=== PATIENT | male | born 1980 | race Caucasian/White ===

== ENCOUNTER 2019-01-01 15:45 | Inpatient (IN) | payer MEDICAID ==
[~2019-01-01] VITALS: Ht 177.8 cm; Wt 77.3 kg
[2019-01-01 16:22] LABS: BASOPHILS # (AUTO) 0.04 x10^3/uL (0-0.1); BASOPHILS % (AUTO) 0 % (0-1); EOSINOPHILS # (AUTO) 0.02 x10^3/uL (0-0.4); EOSINOPHILS % (AUTO) 0 % (1-7); LYMPHOCYTES # (AUTO) 1.71 x10^3/uL (1-3.4); LYMPHOCYTES % (AUTO) 15 % (22-44); MD NO; MEAN CORPUSCULAR HEMOGLOBIN 28.9 pg (27.5-34.5); MEAN CORPUSCULAR HGB CONC 32.9 g/dL (33.2-36.2); MEAN PLATELET VOLUME 8.5 fL (7.4-10.4); MONOCYTES # (AUTO) 0.56 x10^3/uL (0.2-0.8); MONOCYTES % (AUTO) 5 % (2-9); NEUTROPHILS # (AUTO) 9.21 x10^3/uL (1.8-6.8); NEUTROPHILS % (AUTO) 80 % (42-75); PLATELET COUNT 323 x10^3/uL (130-400); RED BLOOD COUNT 4.91 x10^6/uL (4.38-5.82); RED CELL DISTRIBUTION WIDTH 15.8 % (9.4-14.8)
[2019-01-01 16:30] LABS: ANION GAP 10 mmol/L (5-15); CALCIUM 8.9 mg/dL (8.5-10.1); CHLORIDE 107 mmol/L (98-107); SALICYLATE LEVEL < 1.7 mg/dL (2.8-20.0)
[2019-01-01 16:32] LABS: ALANINE AMINOTRANSFERASE 35 U/L (12-78); ALKALINE PHOSPHATASE 113 U/L (45-117); BILIRUBIN,TOTAL 1.5 mg/dL (0.2-1.0); CREATININE 1.26 mg/dL (0.7-1.3); TOTAL PROTEIN 7.7 g/dL (6.4-8.2)
--- NOTE | 2019-01-01 17:00 | NUR ---
PT STATES HE HAS SUICIDAL THOUGHTS CHRONICALLY BUT THAT THEY HAVE BEEN GETTING WORSE THE LAST MONTH. PT IS EXPERIENCING INCREASE IN PTSD FLASHBACKS AND HE JUST WANTS THE PAIN TO GO AWAY.
--- NOTE | 2019-01-01 17:54 | NUR ---
LUNCH RN: PT RESTING IN ROOM WITH FAMILY AT BEDSIDE. 2 BAGS OF BELONGINGS LABLED AND PUT IN LOCKER. AWAITING PSYCH CONSULT AT THIS TIME.
[2019-01-01 18:04] LABS: MICROSCOPIC NOT IND
[2019-01-01 18:13] LABS: CULTURE INDICATED? NO
--- NOTE | 2019-01-01 18:15 | NUR ---
LUNCH RN: TELEPSYCH INITIATED AT THIS TIME, AWAITING CALL BACK
--- NOTE | 2019-01-01 19:04 | NUR ---
TELEPSYCHIATRIST INTERVIEW IN PROGRESS
[2019-01-01 19:27] LABS: AMPHETAMINE SCREEN, URINE Negative (Negative); BARBITURATE SCREEN, URINE Negative (Negative); BENZODIAZEPINE SCREEN, URINE Negative (Negative); CANNABINOID SCREEN, URINE Positive (Negative); COCAINE SCREEN, URINE Negative (Negative); METHADONE SCREEN, URINE Negative (Negative); OPIATE SCREEN, URINE Negative (Negative)
[2019-01-01] MEDS ORDERED: DIVA500T17 PO (19:54)
[2019-01-01] MEDS ORDERED: TRAZ150T62 PO (19:54)
[2019-01-01] MEDS ORDERED: ZIPR40CA3 PO (19:54)
[2019-01-01] MEDS ORDERED: FLUO20CA8 PO (19:54)
[2019-01-01] MEDS ORDERED: PRAZ1CAP2 PO (19:54)
--- NOTE | 2019-01-01 20:00 | NUR ---
PROVIDED DINNER. PT IN VIEW OF SITTER
--- NOTE | 2019-01-01 21:08 | NUR ---
REPORT TO ROBBY FERRIS
--- NOTE | 2019-01-01 21:18 | NUR ---
REPORT RECEIVED, POC DISCUSSED, CARE ASSUMED. PT RESTING QUIETLY, NAD. SITTER IN VIEW OF PT, ROOM SECURED.
--- NOTE | 2019-01-01 21:58 | NUR ---
VS UPDATED, PT COOPERATIVE WITH CARE. SITTER IN VIEW OF PT.
--- NOTE | 2019-01-01 22:39 | NUR ---
TP RN: PACKET FAXED TO [facility].
--- NOTE | 2019-01-01 22:46 | NUR ---
WADE RN: CONFIRMATION FAX RECEIVED FORM [facility].
[2019-01-01] MEDS ORDERED: DOCUSATE 100 MG CAPSULE PO PRN (23:30)
[2019-01-01] MEDS ORDERED: ONDANSETRON ODT 4 MG PO PRN (23:30)
[2019-01-01] MEDS ORDERED: ACETAMINOPHEN 325 MG TABLET PO PRN (23:30)
--- NOTE | 2019-01-01 23:36 | NUR ---
REPORT TO JOSY DELEON. PT TO BE ADMITTED TO ROOM 260. PT UPDATED ON POC.
[2019-01-02 00:01] VITALS: BP 109/72
[2019-01-02] MEDS ORDERED: MAGNESIUM CITRATE 300ML ORAL SOL PO ONE (07:00)
[2019-01-02] MEDS ORDERED: ACETAMINOPHEN 325 MG TABLET PO PRN (07:00)
[2019-01-02 07:23] VITALS: BP 109/69
[2019-01-02 07:28] LABS: BASOPHILS # (AUTO) 0.05 x10^3/uL (0-0.1); BASOPHILS % (AUTO) 1 % (0-1); EOSINOPHILS # (AUTO) 0.09 x10^3/uL (0-0.4); EOSINOPHILS % (AUTO) 1 % (1-7); LYMPHOCYTES # (AUTO) 2.27 x10^3/uL (1-3.4); LYMPHOCYTES % (AUTO) 34 % (22-44); MD NO; MEAN CORPUSCULAR HEMOGLOBIN 28.2 pg (27.5-34.5); MEAN CORPUSCULAR HGB CONC 32.3 g/dL (33.2-36.2); MEAN CORPUSCULAR VOLUME 87.5 fL (81-97); MONOCYTES # (AUTO) 0.73 x10^3/uL (0.2-0.8); MONOCYTES % (AUTO) 11 % (2-9); NEUTROPHILS # (AUTO) 3.48 x10^3/uL (1.8-6.8); NEUTROPHILS % (AUTO) 53 % (42-75); PLATELET COUNT 290 x10^3/uL (130-400); RED BLOOD COUNT 4.98 x10^6/uL (4.38-5.82); RED CELL DISTRIBUTION WIDTH 15.2 % (9.4-14.8)
[2019-01-02] MEDS ORDERED: DOCUSATE 100 MG CAPSULE PO SCH (09:00)
[2019-01-02] MEDS ORDERED: hydrOXyzine 50MG TABLET PO PRN (18:30)
[2019-01-02] MEDS ORDERED: PRAZOSIN 1 MG CAPSULE ONE (20:11)
[2019-01-02 20:13] VITALS: BP 111/73
[2019-01-02] MEDS: SENNOSIDES 8.6 MG TABLET PO PRN (20:27)
[2019-01-02] MEDS ORDERED: QUETIAPINE 100MG TABLET PO SCH (21:00)
[2019-01-02] MEDS ORDERED: DIVALPROEX 500 MG TAB.ER.24H PO SCH (21:00)
[2019-01-02] MEDS ORDERED: PRAZOSIN 2 MG CAPSULE PO SCH (21:00)
[2019-01-03] MEDS: SENNOSIDES 8.6 MG TABLET PO PRN (07:49)
[2019-01-03 08:03] VITALS: BP 87/59
[2019-01-03] MEDS ORDERED: ARIPIPRAZOLE 5 MG TABLET PO SCH (09:00)
[2019-01-03 10:48] VITALS: BP 122/85
[2019-01-04] MEDS ORDERED: BISACODYL 10 MG SUPP PR SCH (09:00)
== END 2019-01-03 17:00 | DRG 885 ==
LOC: ED 18:02 → EDIP 22:00 → 2N 23:48
PROVIDERS: ADMIT Internal Medicine; ATTEND Internal Medicine
DX: F25.0 Schizoaffective disorder, bipolar type (principal); R45.851 Suicidal ideations; E11.9 Type 2 diabetes mellitus without complications; F12.90 Cannabis use, unspecified, uncomplicated; Z62.810 Personal history of physical and sexual abuse in childhood; F17.210 Nicotine dependence, cigarettes, uncomplicated; F43.10 Post-traumatic stress disorder, unspecified; G47.00 Insomnia, unspecified; K59.00 Constipation, unspecified; Z59.0 Homelessness; Z81.8 Family history of other mental and behavioral disorders; Z90.49 Acquired absence of other specified parts of digestive tract
CPT/HCPCS: 36415; 74018; 80053; 80307; 81003; 85025; 99285; G0378; Q0177

== ENCOUNTER 2019-03-05 19:48 | Emergency (ER) | payer MEDICAID ==
[~2019-03-05] VITALS: Ht 175.3 cm; Wt 78.6 kg
[2019-03-06 03:01] VITALS: BP 106/63
== END 2019-03-06 05:49 | disposition home or self-care (01) ==
LOC: ED 20:18
DX: R45.851 Suicidal ideations (principal); F32.9 Major depressive disorder, single episode, unspecified; F25.9 Schizoaffective disorder, unspecified; Z72.9 Problem related to lifestyle, unspecified
CPT/HCPCS: 36415; 80048; 80307; 82040; 85025; 99284

== ENCOUNTER 2021-02-13 08:07 | Emergency (ER) | payer MEDICAID ==
[~2021-02-13] VITALS: Ht 180.3 cm; Wt 66.6 kg
[~2021-02-13 08:07] MED LIST: DIVA500T17 PO; FLUO20CA23 PO; PRAZ1CAP2 PO; TRAZ150T62 PO; ZIPR40CA3 PO
--- NOTE | 2021-02-13 08:29 | NUR ---
PT TO ROOM FROM TRIAGE, CHANGED INTO GOWN, MONITORS IN PLACE. CALL LIGHT WITHIN REACH. PT C/O FEELING DIZZY, LIGHT HEADED, MY FACE FEELS DROOPY, RIGHT UPPER CHEST PAIN. "WHEN IT WAS 104 DEGREES I WALKED FROM [place] TO [place] AND I PASSED OUT A BUNCH, I THINK I MESSED MYSELF UP" "I'VE BEEN PASSING IN AND OUT OF CONCOUSNESS FOR THE PAST FEW DAYS"
--- NOTE | 2021-02-13 08:31 | NUR ---
PA AT BS
--- NOTE | 2021-02-13 09:05 | NUR ---
PT TO CT
--- NOTE | 2021-02-13 09:16 | NUR ---
PT BACK FROM CT, CONNECTED TO MONITORS, CALL LIGHT WITHIN REACH. RESTING ON LUZ DAVIS/JOSE MARTINS
[2021-02-13 09:29] LABS: BASOPHILS % (AUTO) 1 % (0-1); EOSINOPHILS % (AUTO) 2 % (1-7); LYMPHOCYTES % (AUTO) 30 % (22-44); MEAN CORPUSCULAR HEMOGLOBIN 30.6 pg (27.5-34.5); MEAN CORPUSCULAR HGB CONC 33.7 g/dL (33.2-36.2); MONOCYTES % (AUTO) 9 % (2-9); NEUTROPHILS % (AUTO) 58 % (42-75); PLATELET COUNT 336 x10^3/uL (130-400); RED BLOOD COUNT 5.08 x10^6/uL (4.38-5.82); RED CELL DISTRIBUTION WIDTH 14.4 % (9.4-14.8)
[2021-02-13 09:33] LABS: ALBUMIN 3.7 g/dL (3.4-5.0); ANION GAP 2 mmol/L (5-15); CALCIUM 8.9 mg/dL (8.5-10.1); CHLORIDE 112 mmol/L (98-107)
[2021-02-13 09:39] LABS: ALANINE AMINOTRANSFERASE 46 U/L (12-78); ALKALINE PHOSPHATASE 83 U/L (45-117); BILIRUBIN,TOTAL 1.4 mg/dL (0.2-1.0); CREATININE 0.91 mg/dL (0.7-1.3); TROPONIN I < 0.015 ng/mL (0.000-0.045)
[2021-02-13 10:10] VITALS: BP 108/78
--- NOTE | 2021-02-13 10:11 | NUR ---
ERP AT BS FOR EVAL
--- NOTE | 2021-02-13 10:22 | NUR ---
Patient given discharge instructions and they have confirmed that they understand the instructions. Patient ambulatory with steady gait.
== END 2021-02-13 10:23 | disposition home or self-care (01) ==
LOC: ED 08:41
DX: R07.89 Other chest pain (principal); R55 Syncope and collapse; R42 Dizziness and giddiness; F17.200 Nicotine dependence, unspecified, uncomplicated
CPT/HCPCS: 36415; 70450; 80053; 84484; 85025; 93005; 99285